=== PATIENT | male | born 1990 | race Caucasian/White ===

== ENCOUNTER 2018-01-01 02:24 | Emergency (ER) | payer SELFPAY ==
[~2018-01-01] VITALS: Ht 157.5 cm; Wt 64.6 kg
[2018-01-01 02:24] VITALS: BP 125/86
[2018-01-01] MEDS ORDERED: ALBUTEROL SULFATE/IPRATROPIU 3 ML SOL IH ONE (02:30)
[2018-01-01] MEDS ORDERED: methylPREDNISolone SS 125 MG/2 ML VIAL IM ONE (02:30)
[2018-01-01] MEDS ORDERED: methylPREDNISolone SS 125 MG/2 ML VIAL ONE (02:33)
[2018-01-01] MEDS ORDERED: ALBUTEROL 0.083% 2.5 MG/3 ML NEBU INH ONE (03:05)
[2018-01-01 04:01] VITALS: BP 125/86
== END 2018-01-01 03:57 | disposition home or self-care (01) ==
LOC: MED 02:24
DX: J45.901 Unspecified asthma with (acute) exacerbation (principal); F17.210 Nicotine dependence, cigarettes, uncomplicated
CPT/HCPCS: 94640; 96372; 99284; J2930; J7613; J7620

== ENCOUNTER 2019-07-15 14:23 | Emergency (ER) | payer MEDICAID ==
[~2019-07-15] VITALS: Ht 157.5 cm; Wt 68.0 kg
[2019-07-15 14:28] VITALS: BP 138/70
--- NOTE | 2019-07-15 14:40 | NUR ---
28/M [facility] PD FOR PREBOOK/MEDICAL CLEARANCE. STATES MILD BILATERAL LEG PAIN AND HEADACHE. HX- DM RX- INSULIN, METHADONE
--- NOTE | 2019-07-15 16:06 | NUR ---
DR FOX EVALUATING PT AT THIS TIME
[2019-07-15 16:25] VITALS: BP 138/70
--- NOTE | 2019-07-15 16:25 | NUR ---
PATIENT BIB [place]. PATIENT EXAMINED BY DR. FOX. PATIENT MEDICALLY CLEARED AND RELEASED IN CUSTODY IN STABLE CONDITION. ORIGINAL PRE-BOOK FORM GIVEN TO OFFICER BILL.
== END 2019-07-15 16:25 ==
LOC: MED 14:23
DX: Z02.89 Encounter for other administrative examinations (principal); J45.909 Unspecified asthma, uncomplicated; E11.9 Type 2 diabetes mellitus without complications; I10 Essential (primary) hypertension
CPT/HCPCS: 82948; 99283

== ENCOUNTER 2020-07-26 15:52 | Emergency (ER) | payer MEDICAID ==
[~2020-07-26] VITALS: Ht 157.5 cm; Wt 67.1 kg
[2020-07-26 15:58] VITALS: BP 107/70
[2020-07-26] MEDS ORDERED: cefTRIAXone 1,000 MG VIAL ONE (17:18)
[2020-07-26] MEDS ORDERED: VANCOMYCIN 1,000 MG VIAL ONE (17:18)
[2020-07-26] MEDS: MORPHINE SULFATE 4 MG/ML SYR IVP ONE (17:40)
[2020-07-26] MEDS: VANCOMYCIN 1GM/DEXT 5% PREMIX 200 ML IV ONE (17:41)
[2020-07-26 17:58] LABS: BASOPHILS # (AUTO) 0.1 K/uL (0.00-0.22); BASOPHILS % (AUTO) 0.6 % (0.0-2.0); EOSINOPHILS # (AUTO) 0.3 K/uL (0-0.4); EOSINOPHILS % (AUTO) 2.8 % (0.0-4.0); HEMATOCRIT 35.4 % (36-52); HEMOGLOBIN 11.6 g/dL (12.0-18.0); LYMPHOCYTES % (AUTO) 18.6 % (20.5-51.1); MEAN CORPUSCULAR HEMOGLOBIN 27 pg (27-31); MEAN CORPUSCULAR HGB CONC 33 g/dL (33-37); MEAN CORPUSCULAR VOLUME 82.1 fL (80-94); NEUTROPHILS # (AUTO) 7.3 K/uL (1.8-7.7); PLATELET COUNT (AUTO) 255 K/uL (140-450); RED BLOOD CELL COUNT(AUTO) 4.31 MIL/uL (4.20-6.10); RED CELL DISTRIBUTION WIDTH 14.1 % (11.6-13.7); WHITE BLOOD COUNT (AUTO) 10.6 K/uL (4.8-10.8)
[2020-07-26 18:14] LABS: ALBUMIN 3.9 g/dL (3.4-5.0); ANION GAP 12.3 (8-16); CARBON DIOXIDE 30.5 mmol/L (21-32); CREATININE 0.8 mg/dL (0.6-1.3); POTASSIUM 3.8 mmol/L (3.5-5.1); TOTAL BILIRUBIN 0.6 mg/dL (0.0-1.0)
[2020-07-26] MEDS: diphenhydrAMINE 50 MG/ML VIAL IVP ONE (18:33)
[2020-07-26 19:30] VITALS: BP 107/70
== END 2020-07-26 19:30 | disposition home or self-care (01) ==
LOC: MED 15:52
DX: L03.113 Cellulitis of right upper limb (principal); J45.909 Unspecified asthma, uncomplicated; E11.9 Type 2 diabetes mellitus without complications; I10 Essential (primary) hypertension
CPT/HCPCS: 36415; 73130; 80053; 83605; 85025; 85651; 86140; 87040; 96365; 96366; 96368; 96375; 99284; J0696; J1200; J2270; J3370; J7060

== ENCOUNTER 2023-02-07 | Emergency (ER) | payer MEDICAID ==
[~2023-02-07] VITALS: Ht 165.1 cm; Wt 68.9 kg
[2023-02-07 00:07] VITALS: BP 122/84; PULSE 87; RESP 17; TEMP 98; O2SAT 97
[2023-02-07 01:24] LABS: BASOPHILS # (AUTO) 0.1 K/uL (0.00-0.22); BASOPHILS % (AUTO) 0.4 % (0.0-2.0); EOSINOPHILS # (AUTO) 0.1 K/uL (0-0.4); EOSINOPHILS % (AUTO) 0.9 % (0.0-4.0); HEMATOCRIT 42.1 % (36-52); HEMOGLOBIN 13.9 g/dL (12.0-18.0); LYMPHOCYTES # (AUTO) 2.1 K/uL (2.0-11.5); LYMPHOCYTES % (AUTO) 15.8 % (20.5-51.1); MEAN CORPUSCULAR HEMOGLOBIN 28 pg (27-31); MEAN CORPUSCULAR HGB CONC 33 g/dL (33-37); MEAN CORPUSCULAR VOLUME 85.4 fL (80-94); MONOCYTES # (AUTO) 0.8 K/uL (0.8-1.0); MONOCYTES % (AUTO) 6.3 % (1.7-9.3); NEUTROPHILS # (AUTO) 10.2 K/uL (1.8-7.7); NEUTROPHILS % (AUTO) 76.6 % (42.2-75.2); PLATELET COUNT (AUTO) 253 K/uL (140-450); RED BLOOD CELL COUNT(AUTO) 4.92 MIL/uL (4.20-6.10); WHITE BLOOD COUNT (AUTO) 13.4 K/uL (4.8-10.8)
[2023-02-07 01:37] LABS: ALBUMIN 3.9 g/dL (3.4-5.0); ANION GAP 11.6 (8-16); CALCIUM 9.5 mg/dL (8.5-10.1); CARBON DIOXIDE 30.4 mmol/L (21-32); TOTAL BILIRUBIN 0.3 mg/dL (0.0-1.0); TOTAL PROTEIN, SERUM 7.5 g/dL (6.4-8.2)
[2023-02-07] MEDS ORDERED: PIPERACILLIN/TAZOBACTAM 3.375 GM in DEXTROSE 5% 50 ML IV ONE (01:45)
[2023-02-07] MEDS ORDERED: VANCOMYCIN 1,000 MG in DEXTROSE 5% 250 ML IV ONE (01:45)
[2023-02-07] MEDS ORDERED: PIPERACILLIN/TAZOBACTAM 3.375 GM VIAL IV ONE (01:47)
[2023-02-07] MEDS ORDERED: MORPHINE SULFATE 4 MG/ML SYR IVP ONE (01:50)
[2023-02-07] MEDS ORDERED: KETOROLAC 15 MG/ML VIAL IVP ONE (01:50)
[2023-02-07] MEDS ORDERED: ONDANSETRON 4 MG/2 ML VIAL IVP ONE (01:50)
[2023-02-07] MEDS ORDERED: SULF-59 PO (02:22)
[2023-02-07] MEDS ORDERED: CEPH-588 PO (02:22)
[2023-02-07] MEDS ORDERED: VANCOMYCIN 1,000 MG VIAL ONE (02:23)
[2023-02-07 04:12] VITALS: BP 119/78; PULSE 72; RESP 18; TEMP 98; O2SAT 97
== END 2023-02-07 04:12 | disposition left against medical advice (07) ==
LOC: MED
DX: M65.841 Other synovitis and tenosynovitis, right hand (principal); J45.909 Unspecified asthma, uncomplicated; E11.9 Type 2 diabetes mellitus without complications; I10 Essential (primary) hypertension; Z79.899 Other long term (current) drug therapy
CPT/HCPCS: 36415; 73140; 80053; 85025; 85651; 87040; 96365; 96366; 96367; 96375; 99284; J1885; J2270; J2405; J2543; J3370; Q0092

== ENCOUNTER 2024-01-02 13:52 | Emergency (ER) | payer MEDICAID ==
[~2024-01-02] VITALS: Ht 167.6 cm; Wt 67.6 kg
[~2024-01-02 13:52] MED LIST: CEPH-588 PO; SULF-59 PO
[2024-01-02 14:17] VITALS: BP 123/80; PULSE 63; RESP 16; TEMP 98.3; O2SAT 99
[2024-01-02] MEDS: KETOROLAC 30 MG/ML VIAL IM SCH (14:44)
[2024-01-02] MEDS ORDERED: IBUP-1842 PO (15:07)
[2024-01-02 16:35] LABS: BASOPHILS % (AUTO) 0.5 % (0.0-2.0); EOSINOPHILS # (AUTO) 0.1 K/uL (0-0.4); EOSINOPHILS % (AUTO) 1.4 % (0.0-4.0); HEMATOCRIT 48.3 % (36-52); HEMOGLOBIN 15.7 g/dL (12.0-18.0); LYMPHOCYTES # (AUTO) 3.7 K/uL (2.0-11.5); LYMPHOCYTES % (AUTO) 37.1 % (20.5-51.1); MEAN CORPUSCULAR HEMOGLOBIN 28 pg (27-31); MEAN CORPUSCULAR HGB CONC 33 g/dL (33-37); MEAN CORPUSCULAR VOLUME 84.8 fL (80-94); MONOCYTES # (AUTO) 0.7 K/uL (0.8-1.0); MONOCYTES % (AUTO) 7.2 % (1.7-9.3); NEUTROPHILS # (AUTO) 5.4 K/uL (1.8-7.7); NEUTROPHILS % (AUTO) 53.8 % (42.2-75.2); PLATELET COUNT (AUTO) 254 K/uL (140-450); RED CELL DISTRIBUTION WIDTH 13.2 % (11.6-13.7); WHITE BLOOD COUNT (AUTO) 9.9 K/uL (4.8-10.8)
[2024-01-02 17:01] LABS: APPEARANCE,URINE CLEAR (CLEAR); BILIRUBIN,URINE NEGATIVE (NEGATIVE); BLOOD, URINE NEGATIVE (NEGATIVE); COLOR,URINE YELLOW (YELLOW); LEUKOCYTE ESTERASE ,URINE NEGATIVE (NEGATIVE); NITRITE, URINE NEGATIVE (NEGATIVE); PROTEIN,URINE NEGATIVE (NEGATIVE); UGLUCOSE NEGATIVE (NEGATIVE); UROBILINOGEN,URINE 0.2 EU/dL (0.2 - 1)
[2024-01-02 17:02] LABS: CALCIUM 8.8 mg/dL (8.5-10.1); CARBON DIOXIDE 27.1 mmol/L (21-32); CREATININE 0.9 mg/dL (0.6-1.3); POTASSIUM 4.1 mmol/L (3.5-5.1)
[2024-01-02 17:08] LABS: ALANINE AMINOTRANSFERASE 25 U/L (12-78); ALBUMIN 4.6 g/dL (3.4-5.0); ALKALINE PHOSPHATASE 49 U/L (50-136); ASPARTATE AMINOTRANSFERASE 34 U/L (15-37); BILIRUBIN,DIRECT 0.1 mg/dL (0.0-0.3); CREATINE KINASE, TOTAL 343 U/L (39-308); TOTAL BILIRUBIN 0.6 mg/dL (0.0-1.0); TOTAL PROTEIN, SERUM 8.2 g/dL (6.4-8.2)
[2024-01-02 17:13] LABS: AMPHETAMINE, URINE NEGATIVE ng/ml (NEG <=1000); BARBITURATE, URINE NEGATIVE ng/ml (NEG <=200); BENZODIAZEPINE, URINE NEGATIVE ng/mL (NEG <=200); CANNABINOID, URINE POSITIVE ng/mL (NEG <=50); COCAINE, URINE NEGATIVE ng/mL (NEG <=300); OPIATE, URINE POSITIVE ng/mL (NEG <=2000); PHENCYCLIDINE SCREEN,URINE NEGATIVE ng/mL (NEG <=25)
[2024-01-02 17:52] VITALS: BP 131/60; PULSE 80; RESP 18; TEMP 97.3; O2SAT 98
== END 2024-01-02 17:52 | disposition home or self-care (01) ==
LOC: MED 13:52
DX: M25.552 Pain in left hip (principal); M25.551 Pain in right hip; K59.00 Constipation, unspecified; J45.909 Unspecified asthma, uncomplicated; E11.9 Type 2 diabetes mellitus without complications; Z79.1 Long term (current) use of non-steroidal anti-inflammatories (NSAID); Z79.2 Long term (current) use of antibiotics
CPT/HCPCS: 36415; 72170; 80048; 80076; 80305; 81003; 82550; 82553; 85025; 96372; 99284; J1885